=== PATIENT | male | born 1990 | race African-American/Black ===

== ENCOUNTER 2016-10-22 03:55 | Inpatient (IN) | payer MEDICAID, OTHER ==
[~2016-10-22] VITALS: Ht 172.7 cm; Wt 60.8 kg
[~2016-10-22 03:55] MED LIST: HUMALOG; NOVOLIN
[2016-10-22] MEDS ORDERED: ONDANSETRON HCL 4MG/2ML VIAL IV ONE (06:45)
[2016-10-22] MEDS ORDERED: PANTOPRAZOLE SODIUM 40 MG/VIAL IV ONE (06:45)
[2016-10-22] MEDS ORDERED: MORPHINE SULFATE 4 MG/ML CPJ (NOT FOR IM USE) IV ONE (06:45)
[2016-10-22 07:01] LABS: BASOPHILS % 1.3 % (0.0-2.0); HEMOGLOBIN. 11.6 g/dL (14.0-18.0); LYMPHOCYTES % 34.3 % (20.0-50.0); MEAN CORPUSCULAR HEMOGLOBIN 32.3 pg (28.0-32.0); MEAN CORPUSCULAR VOLUME 97.1 fL (80.0-94.0); MEAN PLATELET VOLUME 7.3 fl (7.4-10.4); NEUTROPHILS % 54.4 % (40.0-76.0); PLATELET 297 x1000/uL (130-400); RED CELL DISTRIBUTION WIDTH 14.3 % (11.6-14.6)
[2016-10-22 07:07] LABS: INR 0.9; PROTHROMBIN TIME 9.4 sec (9.4-11.6)
[2016-10-22 07:16] LABS: CARBON DIOXIDE 22 mEq/L (21-32); CHLORIDE 110 mEq/L (98-107); TROPONIN I < 0.02 ng/mL (0.00-0.04)
[2016-10-22 07:19] LABS: CREATINE KINASE MB FRACTION 2.6 ng/mL (0.5-3.6)
[2016-10-22] MEDS ORDERED: SODIUM CHLORIDE 0.9% 1,000 ML IV SCH (10:55)
[2016-10-22] MEDS ORDERED: ONDANSETRON HCL 4MG/2ML VIAL IV PRN (11:00)
[2016-10-22] MEDS ORDERED: ACETAMINOPHEN 325MG TABLET PO PRN (11:00)
[2016-10-22] MEDS ORDERED: DEXTROSE 50% WATER 50ML SYRINGE IV PRN (11:00)
[2016-10-22 11:38] VITALS: BP 108/71
[2016-10-22 12:00] VITALS: BP 108/71
[2016-10-22] MEDS ORDERED: INSULIN DETEMIR UD 100 UNITS/ML SYR SUBCUT SCH (12:00)
[2016-10-22] MEDS ORDERED: BLOOD SUGAR DIAGNOSTIC STRIP TEST SCH (12:10)
[2016-10-22] MEDS ORDERED: INSULIN LISPRO 100 UNITS/ML SUBCUT SCH (12:40)
[2016-10-24 04:18] LABS: OVA & PARASITE EXAM Final report (.)
== END 2016-10-22 15:10 | disposition left against medical advice (07) | DRG 282 ==
LOC: ER 03:55 → 8WST 07:22 → EDBEDREQ 07:35 → ENRESERV 09:24
PROVIDERS: ADMIT Internal Medicine; ATTEND Internal Medicine
DX: K85.90 Acute pancreatitis without necrosis or infection, unspecified (principal); E43 Unspecified severe protein-calorie malnutrition; K52.9 Noninfective gastroenteritis and colitis, unspecified; E86.0 Dehydration; Z53.21 Procedure and treatment not carried out due to patient leaving prior to being seen by health care provider; E11.9 Type 2 diabetes mellitus without complications; F17.200 Nicotine dependence, unspecified, uncomplicated; G89.29 Other chronic pain; Z79.4 Long term (current) use of insulin; Z83.3 Family history of diabetes mellitus; K92.2 Gastrointestinal hemorrhage, unspecified
CPT/HCPCS: 36415; 36430; 71010; 74176; 76705; 80053; 82270; 82550; 82553; 82962; 83036; 83540; 83550; 83605; 83690; 83735; 83880; 84484; 85025; 85044; 85610; 86850; 86900; 87015; 87040; 87045; 87177; 87209; 87427; 87449; 87493; 93005; 96374; 96375; 99291; C9113; J1815; J2270; J2405; J7030

== ENCOUNTER 2016-11-02 06:19 | Inpatient (IN) | payer OTHER ==
[~2016-11-02] VITALS: Ht 172.7 cm; Wt 57.2 kg
[2016-11-02] MEDS ORDERED: SODIUM CHLORIDE 0.9% 1,000 ML IV ONE (06:45)
[2016-11-02 07:35] LABS: BASOPHILS % 0.7 % (0.0-2.0); EOSINOPHILS % 2.3 % (0.0-5.0); HEMATOCRIT. 35.2 % (42.0-52.0); HEMOGLOBIN. 11.4 g/dL (14.0-18.0); LYMPHOCYTES % 28.9 % (20.0-50.0); MEAN CORPUSCULAR VOLUME 98.8 fL (80.0-94.0); MEAN PLATELET VOLUME 7.7 fl (7.4-10.4); MONOCYTES % 5.8 % (2.0-8.0); NEUTROPHILS % 62.3 % (40.0-76.0); PLATELET 249 x1000/uL (130-400); RED BLOOD CELL COUNT 3.56 mill/uL (4.7-6.1); RED CELL DISTRIBUTION WIDTH 13.9 % (11.6-14.6)
[2016-11-02 07:36] LABS: INR 0.9; PROTHROMBIN TIME 9.8 sec (9.4-11.6)
[2016-11-02 07:39] LABS: CARBON DIOXIDE 17 mEq/L (21-32); CHLORIDE 100 mEq/L (98-107)
[2016-11-02] MEDS ORDERED: INSULIN REGULAR (HUMULIN R) 300UNITS/3ML IV ONE (08:00)
[2016-11-02 09:15] VITALS: BP 111/71
[2016-11-02] MEDS ORDERED: ONDANSETRON HCL 4MG/2ML VIAL IV PRN (10:45)
[2016-11-02] MEDS ORDERED: IPRATROPIUM/ALBUTEROL 0.5-3(2.5)MG/3ML NEB INH PRN (10:45)
[2016-11-02] MEDS ORDERED: SODIUM CHLORIDE 0.9% 1,000 ML IV NR (11:30)
[2016-11-02] MEDS ORDERED: ENOXAPARIN 40MG/0.4ML SYR SUBCUT SCH (12:00)
[2016-11-02] MEDS ORDERED: POTA20TA82 PO (12:14)
[2016-11-02] MEDS ORDERED: LANTUSUD SUBCUT (12:14)
[2016-11-02] MEDS ORDERED: INSULIN DETEMIR UD 100 UNITS/ML SYR SUBCUT NR (13:00)
[2016-11-02] MEDS ORDERED: SODIUM CHLORIDE 0.9% 1,000 ML IV SCH (18:00)
[2016-11-02] MEDS ORDERED: INSULIN DETEMIR UD 100 UNITS/ML SYR SUBCUT SCH (22:00)
== END 2016-11-02 11:25 | disposition left against medical advice (07) | DRG 282 ==
LOC: ER 07:38 → 6EST 08:08 → EDBEDREQTM 08:12 → EDBEDREQ 08:12 → ENRESERV 08:34
PROVIDERS: ADMIT Internal Medicine; ATTEND Internal Medicine
DX: K85.90 Acute pancreatitis without necrosis or infection, unspecified (principal); E11.00 Type 2 diabetes mellitus with hyperosmolarity without nonketotic hyperglycemic-hyperosmolar coma (NKHHC); E10.649 Type 1 diabetes mellitus with hypoglycemia without coma; D64.9 Anemia, unspecified; E10.65 Type 1 diabetes mellitus with hyperglycemia; E87.1 Hypo-osmolality and hyponatremia; F17.200 Nicotine dependence, unspecified, uncomplicated; K52.9 Noninfective gastroenteritis and colitis, unspecified; Z79.899 Other long term (current) drug therapy; E44.1 Mild protein-calorie malnutrition
CPT/HCPCS: 36415; 80053; 83036; 83690; 83735; 84100; 85025; 85610; 96361; 96374; 99285; A6261; G0482; J1815; J7030

== ENCOUNTER 2016-11-05 00:46 | Emergency (ER) | payer OTHER ==
[~2016-11-05] VITALS: Ht 172.7 cm; Wt 53.0 kg
[~2016-11-05 00:46] MED LIST changes: -HUMALOG; +LANTUSUD SUBCUT; -NOVOLIN; +POTA20TA82 PO
[2016-11-05 04:35] LABS: CLARITY URINE CLEAR (CLEAR); COLOR URINE YELLOW (YELLOW); GLUCOSE URINE 3+ (NEGATIVE); KETONES URINE NEGATIVE (NEGATIVE); LEUKOCYTE ESTERASE URINE NEGATIVE (NEGATIVE); NITRITE URINE NEGATIVE (NEGATIVE); OCCULT BLOOD URINE NEGATIVE (NEGATIVE); PH URINE 5.5 (4.5-8.0); PROTEIN URINE NEGATIVE (NEGATIVE); SPECIFIC GRAVITY URINE 1.043 (1.005-1.030); UROBILINOGEN URINE 0.2 E.U./dL (0.2-1.0)
[2016-11-05] MEDS ORDERED: METOCLOPRAMIDE HCL 10MG/2ML VIAL IV STA (04:44)
[2016-11-05] MEDS ORDERED: SODIUM CHLORIDE 0.9% 1,000 ML IV ONE ×3 (04:44→06:44)
[2016-11-05] MEDS ORDERED: KETOROLAC 30MG/ML VIAL IV STA (04:44)
[2016-11-05 05:00] LABS: BASOPHILS % 1.3 % (0.0-2.0); EOSINOPHILS % 3.3 % (0.0-5.0); HEMATOCRIT. 35.7 % (42.0-52.0); LYMPHOCYTES % 42.6 % (20.0-50.0); MEAN CORPUSCULAR HEMOGLOBIN 32.2 pg (28.0-32.0); MEAN CORPUSCULAR VOLUME 95.6 fL (80.0-94.0); MEAN PLATELET VOLUME 7.6 fl (7.4-10.4); MONOCYTES % 5.8 % (2.0-8.0); PLATELET 268 x1000/uL (130-400); RED BLOOD CELL COUNT 3.73 mill/uL (4.7-6.1); RED CELL DISTRIBUTION WIDTH 13.1 % (11.6-14.6)
[2016-11-05 05:08] LABS: INR 0.9; PARTIAL THROMBOPLASTIN TIME 27.2 sec (23.4-31.0); PROTHROMBIN TIME 9.5 sec (9.4-11.6)
[2016-11-05 05:14] LABS: CARBON DIOXIDE 19 mEq/L (21-32); CHLORIDE 106 mEq/L (98-107); ETHANOL BLOOD < 10 mg/dL
[2016-11-05] MEDS ORDERED: ONDANSETRON HCL 4MG/2ML VIAL IV STA (06:42)
[2016-11-05] MEDS ORDERED: MORPHINE SULFATE 4 MG/ML CPJ (NOT FOR IM USE) IV STA (06:42)
[2016-11-05] MEDS ORDERED: INSULIN REGULAR (HUMULIN R) UD 100 UNITS/ML SYR SUBCUT ONE (06:45)
[2016-11-05] MEDS ORDERED: INSULIN REGULAR (HUMULIN R) 300UNITS/3ML SUBCUT ONE (07:00)
[2016-11-05 09:11] LABS: *AMPHETAMINES SCREEN URINE NEGATIVE (NEGATIVE); *BARBITURATES SCREEN URINE NEGATIVE (NEGATIVE); *BENZODIAZEPINES SCREEN URINE NEGATIVE (NEGATIVE); *COCAINE SCREEN URINE NEGATIVE (NEGATIVE); CANNABINOID URINE SCREEN NEGATIVE (NEGATIVE); METHADONE URINE SCREEN NEGATIVE (NEGATIVE); OPIATES URINE SCREEN NEGATIVE (NEGATIVE); PHENCYCLIDINE URINE SCREEN NEGATIVE (NEGATIVE)
[2016-11-05 09:47] VITALS: BP 111/76
== END 2016-11-05 09:49 | disposition left against medical advice (07) ==
LOC: ER 00:46 → EDBEDREQ 08:46 → ER 09:49 → ENRESERV 09:55 → CANRESERV 09:55 → CANBEDREQ 10:00
DX: K85.90 Acute pancreatitis without necrosis or infection, unspecified (principal); E11.65 Type 2 diabetes mellitus with hyperglycemia; Z79.4 Long term (current) use of insulin
CPT/HCPCS: 36415; 71010; 80053; 80305; 81001; 82962; 83690; 85025; 85610; 85730; 93005; 96361; 96372; 96374; 96375; 99285; G0482; J1815; J1885; J2270; J2405; J2765; J7030; Z7610